=== PATIENT | female | born 1985 | race Caucasian/White ===

== ENCOUNTER → 2016-11-17 | Outpatient (CLI) | payer BC ==
[2016-11-17 13:46] LABS: PREG INTERNAL NEGATIVE QC NEG CLEAR BACKGROUND; PREG INTERNAL POSITIVE QC POS CONTROL LINE
== END | disposition home or self-care (01) ==
LOC: C.LAB1850 11:32
PROVIDERS: ATTEND Obstetrics & Gynecology
DX: N91.1 Secondary amenorrhea (principal)

== ENCOUNTER → 2016-12-29 | Outpatient (CLI) | payer BC | END | disposition home or self-care (01) | LOC: C.LAB1850 12:18 | PROVIDERS: ATTEND Obstetrics & Gynecology | DX: E03.9 Hypothyroidism, unspecified (principal) ==

== ENCOUNTER → 2017-02-09 | Outpatient (CLI) | payer BC | END | disposition home or self-care (01) | LOC: C.LAB1850 12:16 | PROVIDERS: ATTEND Obstetrics & Gynecology | DX: E03.9 Hypothyroidism, unspecified (principal) ==

== ENCOUNTER → 2017-03-23 | Outpatient (CLI) | payer BC | END | disposition home or self-care (01) | LOC: C.LAB1850 12:24 | PROVIDERS: ATTEND Obstetrics & Gynecology | DX: E03.9 Hypothyroidism, unspecified (principal) ==

== ENCOUNTER → 2017-08-11 | Outpatient (CLI) | payer BC ==
[2017-08-11 09:55] LABS: CALCULATED INSULIN SENSITIVITY 0.296; GLUCOSE LOG 1.9638; INSULIN FASTING 25.7 mU/L (3-25); INSULIN LOG 1.4099
== END | disposition home or self-care (01) ==
LOC: C.LAB1850 08:38
PROVIDERS: ATTEND Obstetrics & Gynecology
DX: E28.2 Polycystic ovarian syndrome (principal)

== ENCOUNTER → 2017-08-14 | Outpatient (CLI) | payer BC ==
[2017-08-14 12:41] LABS: GLUCOSE,2HR PP 88 mg/dl (70-140)
[2017-08-14 12:55] LABS: GTGD 50 Grams
== END | disposition home or self-care (01) ==
LOC: C.LAB 09:42
PROVIDERS: ATTEND Obstetrics & Gynecology
DX: E88.81 Metabolic syndrome and other insulin resistance (principal)

== ENCOUNTER → 2017-09-16 | Outpatient (CLI) | payer BC | END | disposition home or self-care (01) | LOC: C.LAB1850 12:22 | PROVIDERS: ATTEND Obstetrics & Gynecology | DX: E03.9 Hypothyroidism, unspecified (principal); Z32.00 Encounter for pregnancy test, result unknown ==

== ENCOUNTER → 2017-09-18 | Outpatient (CLI) | payer BC | END | disposition home or self-care (01) | LOC: C.LAB 12:15 | PROVIDERS: ATTEND Obstetrics & Gynecology | DX: Z32.00 Encounter for pregnancy test, result unknown (principal) ==

== ENCOUNTER 2017-09-27 15:44 | Emergency (ER) | payer BC ==
[~2017-09-27] VITALS: Ht 162.6 cm; Wt 86.0 kg
[2017-09-27 16:36] VITALS: Ht 162.6 cm; Wt 86.0 kg
[2017-09-27] MEDS ORDERED: LEVO25TA PO (18:25)
[2017-09-27] MEDS ORDERED: PRENTAB26 PO (18:25)
[2017-09-27] MEDS ORDERED: GLC/500 PO (18:25)
[2017-09-27 18:48] LABS: BASO % 0.2 %; BASO ABS # 0.03 K/uL (0-0.2); EOS % 0.9 %; EOS ABS # 0.12 K/uL (0-0.5); HEMATOCRIT 38.5 % (37-47); HEMOGLOBIN 13.4 g/dL (12.0-16.0); IG# 0.04 K/uL (0.00-0.02); LYMPH % 16.3 %; MEAN CELL VOLUME 84.6 fL (80-100); MEAN CORPUSCULAR HEMOGLOBIN 29.5 pg (25-34); MEAN CORPUSCULAR HGB CONC 34.8 g/dl (32-36); MEAN PLATELET VOLUME 9.5 fL (7.4-10.4); MONO % 5.4 %; MONO ABS # 0.73 K/uL (0.11-0.59); NEUT % 76.9 %; NEUT ABS # 10.35 K/uL (1.4-6.5); PLATELET COUNT 321 K/uL (130-400); RED CELL DISTRIBUTION WIDTH CV 13.1 % (11.5-14.5); WHITE BLOOD COUNT 13.47 K/uL (4.8-10.8)
[2017-09-27 19:01] LABS: CALCIUM 9.3 mg/dl (8.5-10.1); CREATININE 0.73 mg/dl (0.60-1.20); POTASSIUM 3.7 mmol/L (3.5-5.1)
--- NOTE | 2017-09-27 19:38 | DIAGNOSTIC IMAGING REPORT ---
ECTOPIC ULTRASOUND CLINICAL HISTORY: , vaginal bleeding. COMPARISON STUDY: No previous studies for comparison. FINDINGS: The patient was scanned in both a transabdominal and endovaginal fashion. An intrauterine gestational sac with an embryo demonstrating a crown-rump length of 9 mm was visualized. This corresponds an estimated postmenstrual age of 6 weeks and 6 days. The heart rate is 123. A 3 mm yolk sac was visualized. There is a small amount of free fluid within the right adnexa. The right ovary appears architectural unremarkable. There is a 25 mm left ovarian isoechoic lesion likely are presenting a hemorrhagic cyst. There is a small complex subchorionic hematoma. IMPRESSION: 1. Single alive intrauterine gestation. The estimated postmenstrual age is 6 weeks and 6 days 2. Small complex subchorionic hematoma Electronically signed by: Amos Hendrix M.D. 09/27/2017 7:36 PM Dictated Date/Time: 09/27/2017 7:33 PM
--- NOTE | 2017-09-27 20:10 | EMERGENCY ROOM VISIT NOTE ---
ED Visit Note First contact with patient: 17:40 CHIEF COMPLAINT: Vaginal spotting today, 7 weeks HISTORY OF PRESENT ILLNESS: Patient is a G8 1 P0 reportedly 7 week 32- year-old white female with past medical history significant for hypothyroidism and polycystic ovarian syndrome who presents to the emergency department for evaluation of vaginal spotting. Her symptoms started this morning. She states when she woke and voided for the first time, she noted some brown blood in the toilet after she urinated. As the day has gone on, she now notes a similar brown blood only with wiping after voiding. She admitted to some very slight diffuse lower abdominal discomfort this morning which has since resolved. She states that the spotting has continued throughout the day, but is not to the point where she has needed to use a pad. She does admit that it is lessening as the day has gone on. She denies any vaginal discharge, no recent intercourse. She denies any dysuria. She reports that her last menstrual period was 08/10/2017, she had a positive home test on September 12, and had subsequent serum hCG levels on the and on the , which increased appropriately. She is scheduled to see the obstetric RN on 10/11, and have her initial obstetric appointment with the physician on 10/18. She denies that she contacted the doctor's office prior to coming to the emergency department. She rates her discomfort a 0/10. REVIEW OF SYSTEMS: Review of systems as per HPI. All other systems reviewed were negative. 10 systems reviewed. PMH: Electronic medical records are reviewed and summarized as above/below. See Problem List. SOCIAL HISTORY: Patient lives at home with her spouse. Employed. She does not smoke. PHYSICAL EXAM: Vital Signs: Reviewed Nurse's notes. CONSTITUTIONAL: Patient is a pleasant albeit slightly anxious 2-year-old white female who is awake and alert and in no acute distress. Her is at the bedside. EYES: Pupils equal, round, reactive to light and accommodation. EOMs intact without nystagmus. Sclera are anicteric. ENT: Tympanic membranes intact, with normal landmarks. External canals are clear. Oral and nasopharynx are clear. Mucous membranes are moist, no lesions , tongue and gums appear normal. NECK: Supple without lymphadenopathy. No thyromegaly. No meningeal signs. Full active range of motion without discomfort. CARDIOVASCULAR: Regular rate and rhythm, with normal S1 and S2, no murmur or gallop or rub is heard. No carotid bruits auscultated. No JVD. Peripheral pulses easily palpable. RESPIRATORY: Breath sounds equal and clear to auscultation without wheezes, rales, or rhonchi heard. Full and equal chest expansion without accessory muscle use or retractions. ABDOMEN: Bowel sounds are present. Abdomen is soft, nontender and nondistended. No guarding or rebound. INTEGUMENTARY: No lesions or rash, normal skin turgor. LYMPH: No lymphadenopathy. EMERGENCY DEPARTMENT COURSE: The patient was seen and evaluated as above. She presents the emergency department for evaluation of first trimester vaginal bleeding. She has yet to have an ultrasound to confirm intrauterine , the hCG levels have been appropriate however. She is hemodynamically stable. IV lock was initiated. CBC with differential, BMP, quantitative hCG, urinalysis and ABO Rh were collected. Pelvic ultrasound was performed to evaluate intrauterine and vaginal bleeding. Patient has a slightly elevated white count at 13,400 of unclear significance. H&H and platelets are normal. Electrolytes are without gross abnormality. Renal functions are normal. Quantitative hCG is 36,793. Urinalysis notes trace occult blood and tender 30 RBCs with 20-30 epithelial cells, no other indicators for infection. Blood type is O+. Pelvic ultrasound documents a intrauterine measuring weeks 6 days, with cardiac activity at 123 beats per minute. She has a small complex subchorionic hematoma, and a 2.5 cm hemorrhagic left ovarian cyst. All laboratory and diagnostic imaging studies were reviewed with the patient and she was reassured. Her bleeding appears consistent with the subchorionic hematoma. She has a confirmed intrauterine at this time. HCG levels are consistent with her dates. The patient was given bleeding precautions, and encouraged to keep the obstetric appointments that she has scheduled. 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 The patient was discharged home with her in good condition , rating her pain a 0/10 at discharge. Differential diagnoses entertained included first trimester vaginal bleeding, , ectopic , threatened AB, spontaneous , subchorionic hemorrhage, UTI, cystitis, among others. Medication reconciliation: I attest that I have personally reviewed the patient' s current medication list. Blood pressure screening: Patient was found to have a slightly elevated blood pressure due to circumstances. I do not believe that the patient requires hypertension monitoring. ECTOPIC ULTRASOUND CLINICAL HISTORY: , vaginal bleeding. COMPARISON STUDY: No previous studies for comparison. FINDINGS: The patient was scanned in both a transabdominal and endovaginal fashion. An intrauterine gestational sac with an embryo demonstrating a crown-rump length of 9 mm was visualized. This corresponds an estimated postmenstrual age of 6 weeks and 6 days. The heart rate is 123. A 3 mm yolk sac was visualized. There is a small amount of free fluid within the right adnexa. The right ovary appears architectural unremarkable. There is a 25 mm left ovarian isoechoic lesion likely are presenting a hemorrhagic cyst. There is a small complex subchorionic hematoma. IMPRESSION: 1. Single alive intrauterine gestation. The estimated postmenstrual age is 6 weeks and 6 days 2. Small complex subchorionic hematoma Problem List Medical Problems: (1) Hypothyroidism, Unspecified Status: Chronic (2) Metabolic Syndrome Status: Chronic (3) Polycystic Ovarian Syndrome Status: Chronic Surgical Problems: (1) H/O wisdom tooth extraction Status: Resolved Current/Historical Medications Scheduled Levothyroxine Sodium (Synthroid), 1 TAB PO DAILY Metformin Hcl (Glucophage), 500 MG PO BID Multivit/Min/Iron/Fol Ac/Pren ( Vitamin), 1 TAB PO DAILY Allergies Coded Allergies: No Known Allergies (Unverified , 09/27/17) Vital Signs Date Time Temp Pulse Resp B/P (MAP) Pulse Ox O2 Delivery O2 Flow Rate FiO2 09/27/17 20:17 36.8 80 20 148/86 98 Room Air 09/27/17 19:19 78 20 149/105 98 Room Air 09/27/17 16:36 36.6 102 18 166/116 99 Room Air Laboratory Results 09/27/17 18:30 Red Blood Count 4.55, Mean Corpuscular Volume 84.6, Mean Corpuscular Hemoglobin 29.5, Mean Corpuscular Hemoglobin Concent 34.8, Mean Platelet Volume 9.5, Neutrophils (%) (Auto) 76.9, Lymphocytes (%) (Auto) 16.3, Monocytes (%) (Auto) 5.4, Eosinophils (%) (Auto) 0.9, Basophils (%) (Auto) 0.2, Neutrophils # (Auto) 10.35, Lymphocytes # (Auto) 2.20, Monocytes # (Auto) 0.73, Eosinophils # (Auto) 0.12, Basophils # (Auto) 0.03 09/27/17 18:30 Test 09/27/17 18:30 09/27/17 19:20 White Blood Count 13.47 K/uL (4.8-10.8) Red Blood Count 4.55 M/uL (4.2-5.4) Hemoglobin 13.4 g/dL (12.0-16.0) Hematocrit 38.5 % (37-47) Mean Corpuscular Volume 84.6 fL (80-100) Mean Corpuscular Hemoglobin 29.5 pg (25-34) Mean Corpuscular Hemoglobin Concent 34.8 g/dl (32-36) Platelet Count 321 K/uL (130-400) Mean Platelet Volume 9.5 fL (7.4-10.4) Neutrophils (%) (Auto) 76.9 % Lymphocytes (%) (Auto) 16.3 % Monocytes (%) (Auto) 5.4 % Eosinophils (%) (Auto) 0.9 % Basophils (%) (Auto) 0.2 % Neutrophils # (Auto) 10.35 K/uL (1.4-6.5) Lymphocytes # (Auto) 2.20 K/uL (1.2-3.4) Monocytes # (Auto) 0.73 K/uL (0.11-0.59) Eosinophils # (Auto) 0.12 K/uL (0-0.5) Basophils # (Auto) 0.03 K/uL (0-0.2) RDW Standard Deviation 40.0 fL (36.4-46.3) RDW Coefficient of Variation 13.1 % (11.5-14.5) Immature Granulocyte % (Auto) 0.3 % Immature Granulocyte # (Auto) 0.04 K/uL (0.00-0.02) Anion Gap 10.0 mmol/L (3-11) Est Creatinine Clear Calc Drug Dose 118.5 ml/min Estimated GFR () 127.2 Estimated GFR (Non- 109.7 BUN/Creatinine Ratio 11.3 (10-20) Calcium Level 9.3 mg/dl (8.5-10.1) Human Chorionic Gonadotropin, Quant 91913 mIU/mL Urine Color YELLOW Urine Appearance CLEAR (CLEAR) Urine pH 5.0 (4.5-7.5) Urine Specific [place] 1.019 (1.000-1.030) Urine Protein NEG (NEG) Urine Glucose (UA) NEG (NEG) Urine Ketones NEG (NEG) Urine Occult Blood TRACE (NEG) Urine Nitrite NEG (NEG) Urine Bilirubin NEG (NEG) Urine Urobilinogen NEG (NEG) Urine Leukocyte Esterase NEG (NEG) Urine WBC (Auto) 1-5 /hpf (0-5) Urine RBC (Auto) 10-30 /hpf (0-4) Urine Hyaline Casts (Auto) 1-5 /lpf (0-5) Urine Epithelial Cells (Auto) 20-30 /lpf (0-5) Urine Bacteria (Auto) NEG (NEG) Departure Information Impression Primary Impression: First trimester Additional Impression: Subchorionic hematoma in first trimester Referrals No Doctor, Assigned (PCP) Patient Instructions [facility] Additional Instructions Acetaminophen(Tylenol) may be used for fever or pain. Use 1000mg every six hours as needed. Avoid using more than 3000mg in a 24 hour period. Rest and avoid any heavy lifting or strenuous activity. Strict vaginal rest-no tampons, douching or intercourse. Drink plenty of fluids. Diet as tolerated. Continue current medications. Follow up with MOTTLE LAY UP OPERATOR as scheduled. Return to the ED for worsening pain, heavier bleeding (soaking a pad in an hour or less, passing clots larger than your fist), lightheadedness, dizziness, passing out, worsening of your condition or as needed. Problem Qualifiers
[2017-09-27 20:17] VITALS: BP 148/86; PULSE 80; TEMP 36.8; O2SAT 98
== END 2017-09-27 20:19 | disposition home or self-care (01) ==
LOC: C.EDB 15:46
DX: O20.8 Other hemorrhage in early pregnancy (principal); Z3A.01 Less than 8 weeks gestation of pregnancy; E03.9 Hypothyroidism, unspecified; O99.281 Endocrine, nutritional and metabolic diseases complicating pregnancy, first trimester; E28.2 Polycystic ovarian syndrome; E88.81 Metabolic syndrome and other insulin resistance; Z79.899 Other long term (current) drug therapy

== ENCOUNTER 2017-09-30 11:19 | Emergency (ER) | payer BC ==
[~2017-09-30] VITALS: Ht 162.6 cm; Wt 99.2 kg
[~2017-09-30 11:19] MED LIST: GLC/500 PO; LEVO25TA PO; PRENTAB26 PO
[2017-09-30 11:31] VITALS: TEMP 36.8; Ht 162.6 cm; Wt 99.2 kg
[2017-09-30] MEDS ORDERED: SODIUM CHLORIDE 0.9% 1000ML 1,000 ML IV STA (12:15)
--- NOTE | 2017-09-30 12:19 | EMERGENCY ROOM VISIT NOTE ---
History Report prepared by Delores: Stone Robbins Under the Supervision of: Dr. Claudio Santillan M.D. First contact with patient: 12:04 Chief Complaint: ED VAG BLEEDING Stated Complaint: POSSIBLE MISCARRIAGE, 7 WEEKS History of Present Illness The patient is a 32 year old female who presents to the Emergency Room with concerns over worsening vaginal bleeding that the patient noticed this morning while at work at 1100, 1 hour ago. The patient notes that she is currently 7 weeks based off of her last menstrual cycle. She noticed some vaginal bleeding earlier this week and she came into the ED. She had an Ultra Sound performed that showed a intrauterine with an active heartbeat. Her bleeding was attributed to a hematoma on the uterus that would not harm the fetus. Today her bleeding was much worse, and she noticed some tissue in the toilet. She did not follow-up with her OBGYN after her ED visit earlier this week. She has an appointment scheduled for the of this month. The patient denies any other symptoms prior to/during her bleeding, aside from common "morning" sickness. She denies any associated lightheadedness or headaches. P:0 A:0 Review of the Patient's EMR shows that she was present in the ED on the 27 of September, three days ago. She had a Ultra Sound that revealed a definitive IUP and subchorionic hematoma. 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 A total of ten systems were reviewed and were otherwise negative. Past Medical & Surgical Medical Problems: (1) Hypothyroidism, Unspecified (2) Metabolic Syndrome (3) Polycystic Ovarian Syndrome Surgical Problems: (1) H/O wisdom tooth extraction Family History No Pertinent family histories discussed. Social History Smoking Status: Never Smoker Drug Use: none Marital Status: Housing Status: lives with significant other Occupation Status: employed Current/Historical Medications Scheduled Levothyroxine Sodium (Synthroid), 1 TAB PO DAILY Metformin Hcl (Glucophage), 500 MG PO BID Multivit/Min/Iron/Fol Ac/Pren ( Vitamin), 1 TAB PO DAILY Allergies Coded Allergies: No Known Allergies (Unverified , 09/30/17) Physical Exam Vital Signs Date Time Temp Pulse Resp B/P (MAP) Pulse Ox O2 Delivery O2 Flow Rate FiO2 09/30/17 15:49 94 18 139/88 100 09/30/17 14:27 103 18 157/91 99 Room Air 09/30/17 11:31 36.8 98 16 168/105 98 Physical Exam GENERAL: Awake, alert, anxious-appearing, in no distress HENT: Normocephalic, atraumatic. Oropharynx unremarkable. EYES: Normal conjunctiva. Sclera non-icteric. NECK: Supple. No nuchal rigidity. FROM. No JVD. RESPIRATORY: Clear to auscultation. CARDIAC: Regular rate, normal rhythm. Extremities warm and well perfused. Pulses equal. ABDOMEN: Soft, non-distended. No tenderness to palpation. No rebound or guarding. No masses. RECTAL: Deferred. MUSCULOSKELETAL: Chest examination reveals no tenderness. The back is symmetrical on inspection without obvious abnormality. There is no CVA tenderness to palpation. No joint edema. LOWER EXTREMITIES: Calves are equal size bilaterally and non-tender. No edema. No discoloration. NEURO: Normal sensorium. No sensory or motor deficits noted. SKIN: No rash or jaundice noted. PELVIC: Pelvic Speculum exam reveals open Os, scant amount of clot in the vaginal vault. No active hemorrhage or bleeding. Medical Decision & Procedures ER Provider Diagnostic Interpretation: Radiology results as stated below per my review and radiologist interpretation: ULTRASOUND OF THE PELVIS CLINICAL HISTORY: . Vaginal bleeding. COMPARISON STUDY: No priors. TECHNIQUE: Real-time, grayscale, and color flow sonography of the pelvis is performed both transabdominally and endovaginally. Images are reviewed in the transverse and longitudinal planes. FINDINGS: Uterus: The retroverted gravid uterus is normal in size and echotexture, measuring 10.0 x 6.3 x 6.7 cm. Trace fluid is noted in the endocervical canal. Gestation: There is a single live uterine gestation with an estimated heart rate of 136 bpm. The crown-rump length measures 0.83 cm, corresponding to an estimated age of 6 weeks 5 days. This is concordant with the mean gestational sac diameter of 2.18 cm which corresponds to an estimated age of 6 weeks 5 days. A yolk sac is identified there are 2 small subchorionic hemorrhages which measures up to 2.1 cm. Ovaries: The ovaries are normal in size and morphology. The right ovary measures 3.7 x 2.3 x 2.2 cm and the left ovary measures 4.0 x 3.2 x 3.0 cm. There are bilateral follicles. A corpus the team is suggested on the left. Normal Doppler waveforms are shown within both ovaries. Pelvis: There is no free fluid in the cul-de-sac. No concerning adnexal lesion is seen. IMPRESSION: 1. There is a single live intrauterine gestation with an estimated age of 6 weeks 5 days by crown-rump length measurement. 2. There are 2 small foci of subchorionic hemorrhage identified. 3. No adnexal abnormality is identified. Electronically signed by: Sahil Ordoñez M.D. 09/30/2017 2:21 PM Dictated Date/Time: 09/30/2017 2:18 PM ULTRASOUND OF THE PELVIS CLINICAL HISTORY: . Vaginal bleeding. COMPARISON STUDY: No priors. TECHNIQUE: Real-time, grayscale, and color flow sonography of the pelvis is performed both transabdominally and endovaginally. Images are reviewed in the transverse and longitudinal planes. FINDINGS: Uterus: The retroverted gravid uterus is normal in size and echotexture, measuring 10.0 x 6.3 x 6.7 cm. Trace fluid is noted in the endocervical canal. Gestation: There is a single live uterine gestation with an estimated heart rate of 136 bpm. The crown-rump length measures 0.83 cm, corresponding to an estimated age of 6 weeks 5 days. This is concordant with the mean gestational sac diameter of 2.18 cm which corresponds to an estimated age of 6 weeks 5 days. A yolk sac is identified there are 2 small subchorionic hemorrhages which measures up to 2.1 cm. Ovaries: The ovaries are normal in size and morphology. The right ovary measures 3.7 x 2.3 x 2.2 cm and the left ovary measures 4.0 x 3.2 x 3.0 cm. There are bilateral follicles. A corpus the team is suggested on the left. Normal Doppler waveforms are shown within both ovaries. Pelvis: There is no free fluid in the cul-de-sac. No concerning adnexal lesion is seen. IMPRESSION: 1. There is a single live intrauterine gestation with an estimated age of 6 weeks 5 days by crown-rump length measurement. 2. There are 2 small foci of subchorionic hemorrhage identified. 3. No adnexal abnormality is identified. Electronically signed by: Sahil Ordoñez M.D. 09/30/2017 2:21 PM Dictated Date/Time: 09/30/2017 2:18 PM Laboratory Results 09/30/17 12:29 Red Blood Count 4.52, Mean Corpuscular Volume 84.7, Mean Corpuscular Hemoglobin 29.2, Mean Corpuscular Hemoglobin Concent 34.5, Mean Platelet Volume 9.4, Neutrophils (%) (Auto) 76.9, Lymphocytes (%) (Auto) 14.1, Monocytes (%) (Auto) 7.2, Eosinophils (%) (Auto) 1.1, Basophils (%) (Auto) 0.3, Neutrophils # (Auto) 9.42, Lymphocytes # (Auto) 1.73, Monocytes # (Auto) 0.88, Eosinophils # (Auto) 0.14, Basophils # (Auto) 0.04 09/30/17 12:29 Test 09/30/17 12:29 White Blood Count 12.26 K/uL (4.8-10.8) Red Blood Count 4.52 M/uL (4.2-5.4) Hemoglobin 13.2 g/dL (12.0-16.0) Hematocrit 38.3 % (37-47) Mean Corpuscular Volume 84.7 fL (80-100) Mean Corpuscular Hemoglobin 29.2 pg (25-34) Mean Corpuscular Hemoglobin Concent 34.5 g/dl (32-36) Platelet Count 303 K/uL (130-400) Mean Platelet Volume 9.4 fL (7.4-10.4) Neutrophils (%) (Auto) 76.9 % Lymphocytes (%) (Auto) 14.1 % Monocytes (%) (Auto) 7.2 % Eosinophils (%) (Auto) 1.1 % Basophils (%) (Auto) 0.3 % Neutrophils # (Auto) 9.42 K/uL (1.4-6.5) Lymphocytes # (Auto) 1.73 K/uL (1.2-3.4) Monocytes # (Auto) 0.88 K/uL (0.11-0.59) Eosinophils # (Auto) 0.14 K/uL (0-0.5) Basophils # (Auto) 0.04 K/uL (0-0.2) RDW Standard Deviation 39.7 fL (36.4-46.3) RDW Coefficient of Variation 13.0 % (11.5-14.5) Immature Granulocyte % (Auto) 0.4 % Immature Granulocyte # (Auto) 0.05 K/uL (0.00-0.02) Prothrombin Time 9.9 SECONDS (9.0-12.0) Prothromb Time International Ratio 0.9 (0.9-1.1) Activated Partial Thromboplast Time 28.8 SECONDS (21.0-31.0) Partial Thromboplastin Ratio 1.1 Anion Gap 6.0 mmol/L (3-11) Est Creatinine Clear Calc Drug Dose 108.5 ml/min Estimated GFR () 104.3 Estimated GFR (Non- 90.0 BUN/Creatinine Ratio 12.3 (10-20) Calcium Level 9.5 mg/dl (8.5-10.1) Total Bilirubin 0.4 mg/dl (0.2-1) Aspartate Amino Transf (AST/SGOT) 16 U/L (15-37) Alanine Aminotransferase (ALT/SGPT) 30 U/L (12-78) Alkaline Phosphatase 74 U/L (45-117) Total Protein 8.4 gm/dl (6.4-8.2) Albumin 3.8 gm/dl (3.4-5.0) Globulin 4.6 gm/dl (2.5-4.0) Albumin/Globulin Ratio 0.8 (0.9-2) Human Chorionic Gonadotropin, Quant 23330 mIU/mL Laboratory results reviewed by me Medications Administered Medications (Trade) Dose Ordered Sig/Davey Route Start Time Stop Time Status Last Admin Dose Admin Sodium Chloride 1,000 ml @ 999 mls/hr Q1H1M STAT IV 09/30/17 12:15 09/30/17 13:15 DC 09/30/17 12:15 999 MLS/HR Procedure BEDSIDE ULTRA SOUND: Shows no definitive IUP. ED Course 1206: The patient was evaluated in room C4. A complete history and physical exam was performed. 1213: I performed a bedside ultra sound at this time. This shows no definitive IUP. 1215: Ordered Sodium Chloride 1000 mL @ 999 mL/hr IV. 1317: I performed a pelvic exam at this time before the patient goes to Ultra Sound. See physical exam for findings. 1452: I discussed the results of Ultra Sound with the patient at this time. 1514: I discussed the case with Dr. Baez -Mikhail BARONE. He will evaluate the patient in his office as an outpatient. 1528: I reevaluated the patient. Discussed results and discharge instructions: She and her verbalized understanding and agreement. The patient is ready for discharge. Medical Decision I reviewed the patient's past medical history, medications, and the nursing notes as described above. Differential diagnosis: Etiologies such as ectopic , dysfunction uterine bleeding, bleeding dyscrasia, trauma, infection, as well as others were entertained. 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 On arrival the patient is anxious/tearful but in NAD, AFVSS. Abd NT/ND. Pelvic exam with open os and scant residual clots but no active bleeding. TVUS demonstrates IUP with FHR 130s with 2 small subchorionic hemorrhages. Labs unremarkable. Blood type O+ . Given repeat ED visit case d/w Dr. Baez, OB on-call, who agrees there is no intervention indicated in this setting and findings may be indicative of impending miscarriage. Patient to call OB office for earlier appointment as well as if bleeding resumes. Dr. Baez also met with patient at bedside to explain plan. Findings and plan for follow-up reviewed with patient. Patient agreeable and d/c'd per discharge instructions. Medication Reconcilliation Current Medication List: was personally reviewed by me Blood Pressure Screening Patient's blood pressure: Elevated blood pressure Consults Time Called: 1510 Consulting Physician: Dr. Sasha BARONE Returned Call: 1514 I discussed the case with Dr. Baez -Mikhail BARONE. He will evaluate the patient in his office as an outpatient. Impression Primary Impression: Subchorionic hemorrhage in first trimester Scribe Attestation The scribe's documentation has been prepared under my direction and personally reviewed by me in its entirety. I confirm that the note above accurately reflects all work, treatment, procedures, and medical decision making performed by me. Departure Information Dispostion Home / Self-Care Referrals No Doctor, Assigned (PCP) Patient Instructions Bleeding Early Preg, My [facility], Preg 1st Trimester Additional Instructions Please follow up with your boom storage in the next week for re-evaluation. Your bleeding is likely due to a subchorionic hemorrhage, which can put you at risk for a miscarriage. However, today your was not affect with normal heart beat. Otherwise, your exam and lab results did not show signs of an emergent condition at this time. Drink plenty of fluids to ensure hydration. Return to the emergency department for worsening symptoms as described in the accompanying instructions.
[2017-09-30 12:46] LABS: BASO % 0.3 %; BASO ABS # 0.04 K/uL (0-0.2); EOS % 1.1 %; EOS ABS # 0.14 K/uL (0-0.5); HEMATOCRIT 38.3 % (37-47); HEMOGLOBIN 13.2 g/dL (12.0-16.0); IG# 0.05 K/uL (0.00-0.02); LYMPH % 14.1 %; LYMPH ABS # 1.73 K/uL (1.2-3.4); MEAN CELL VOLUME 84.7 fL (80-100); MEAN CORPUSCULAR HEMOGLOBIN 29.2 pg (25-34); MEAN CORPUSCULAR HGB CONC 34.5 g/dl (32-36); MEAN PLATELET VOLUME 9.4 fL (7.4-10.4); MONO % 7.2 %; MONO ABS # 0.88 K/uL (0.11-0.59); NEUT % 76.9 %; NEUT ABS # 9.42 K/uL (1.4-6.5); PLATELET COUNT 303 K/uL (130-400); RED CELL DISTRIBUTION WIDTH SD 39.7 fL (36.4-46.3); WHITE BLOOD COUNT 12.26 K/uL (4.8-10.8)
[2017-09-30 12:56] LABS: INR 0.9 (0.9-1.1); PTT PATIENT 28.8 SECONDS (21.0-31.0)
[2017-09-30 13:01] LABS: ALBUMIN 3.8 gm/dl (3.4-5.0); CALCIUM 9.5 mg/dl (8.5-10.1); CREATININE 0.86 mg/dl (0.60-1.20); POTASSIUM 3.7 mmol/L (3.5-5.1)
[2017-09-30 13:04] LABS: TOTAL PROTEIN 8.4 gm/dl (6.4-8.2)
--- NOTE | 2017-09-30 14:22 | DIAGNOSTIC IMAGING REPORT ---
ULTRASOUND OF THE PELVIS CLINICAL HISTORY: . Vaginal bleeding. COMPARISON STUDY: No priors. TECHNIQUE: Real-time, grayscale, and color flow sonography of the pelvis is performed both transabdominally and endovaginally. Images are reviewed in the transverse and longitudinal planes. FINDINGS: Uterus: The retroverted gravid uterus is normal in size and echotexture, measuring 10.0 x 6.3 x 6.7 cm. Trace fluid is noted in the endocervical canal. Gestation: There is a single live uterine gestation with an estimated heart rate of 136 bpm. The crown-rump length measures 0.83 cm, corresponding to an estimated age of 6 weeks 5 days. This is concordant with the mean gestational sac diameter of 2.18 cm which corresponds to an estimated age of 6 weeks 5 days. A yolk sac is identified there are 2 small subchorionic hemorrhages which measures up to 2.1 cm. Ovaries: The ovaries are normal in size and morphology. The right ovary measures 3.7 x 2.3 x 2.2 cm and the left ovary measures 4.0 x 3.2 x 3.0 cm. There are bilateral follicles. A corpus the team is suggested on the left. Normal Doppler waveforms are shown within both ovaries. Pelvis: There is no free fluid in the cul-de-sac. No concerning adnexal lesion is seen. IMPRESSION: 1. There is a single live intrauterine gestation with an estimated age of 6 weeks 5 days by crown-rump length measurement. 2. There are 2 small foci of subchorionic hemorrhage identified. 3. No adnexal abnormality is identified. Electronically signed by: Sahil Ordoñez M.D. 09/30/2017 2:21 PM Dictated Date/Time: 09/30/2017 2:18 PM
[2017-09-30 15:49] VITALS: BP 139/88; PULSE 94; O2SAT 100
== END 2017-09-30 15:50 | disposition home or self-care (01) ==
LOC: C.EDB 11:20 → C.EDC 15:50
DX: O46.91 Antepartum hemorrhage, unspecified, first trimester (principal); Z3A.01 Less than 8 weeks gestation of pregnancy; E03.9 Hypothyroidism, unspecified

== ENCOUNTER → 2017-10-04 | Outpatient (CLI) | payer BC | END | disposition home or self-care (01) | LOC: C.LABSPEC 17:24 | PROVIDERS: ATTEND Obstetrics & Gynecology | DX: Z34.01 Encounter for supervision of normal first pregnancy, first trimester (principal); Z3A.00 Weeks of gestation of pregnancy not specified ==

== ENCOUNTER → 2017-10-12 | Outpatient (CLI) | payer BC | END | disposition home or self-care (01) | LOC: C.PAPS 12:08 | PROVIDERS: ATTEND Obstetrics & Gynecology | DX: Z34.01 Encounter for supervision of normal first pregnancy, first trimester (principal) ==

== ENCOUNTER → 2017-10-12 | Outpatient (CLI) | payer BC ==
[2017-10-12 10:17] LABS: BASO % 0.5 %; BASO ABS # 0.05 K/uL (0-0.2); EOS % 1.4 %; EOS ABS # 0.15 K/uL (0-0.5); HEMATOCRIT 37.1 % (37-47); HEMOGLOBIN 12.9 g/dL (12.0-16.0); IG# 0.05 K/uL (0.00-0.02); LYMPH % 15.4 %; LYMPH ABS # 1.69 K/uL (1.2-3.4); MEAN CELL VOLUME 83.6 fL (80-100); MEAN CORPUSCULAR HEMOGLOBIN 29.1 pg (25-34); MEAN CORPUSCULAR HGB CONC 34.8 g/dl (32-36); MEAN PLATELET VOLUME 9.4 fL (7.4-10.4); MONO % 5.5 %; MONO ABS # 0.61 K/uL (0.11-0.59); NEUT % 76.7 %; NEUT ABS # 8.45 K/uL (1.4-6.5); PLATELET COUNT 372 K/uL (130-400); RED CELL DISTRIBUTION WIDTH CV 12.9 % (11.5-14.5); RED CELL DISTRIBUTION WIDTH SD 39.5 fL (36.4-46.3)
[2017-10-12 10:25] LABS: HEMOGLOBIN A1C 4.9 % (4.5-5.6)
== END | disposition home or self-care (01) ==
LOC: C.LAB1850 09:20
PROVIDERS: ATTEND Obstetrics & Gynecology
DX: Z34.01 Encounter for supervision of normal first pregnancy, first trimester (principal); O99.280 Endocrine, nutritional and metabolic diseases complicating pregnancy, unspecified trimester; R73.03 Prediabetes

== ENCOUNTER → 2017-11-18 | Outpatient (CLI) | payer BC | END | disposition home or self-care (01) | LOC: C.LAB1850 12:31 | PROVIDERS: ATTEND Physician Assistant | DX: E03.9 Hypothyroidism, unspecified (principal) ==

== ENCOUNTER → 2017-12-03 | Outpatient (CLI) | payer BC | END | disposition home or self-care (01) | LOC: C.LAB1850 09:08 | PROVIDERS: ATTEND Obstetrics & Gynecology | DX: Z34.02 Encounter for supervision of normal first pregnancy, second trimester (principal) ==

== ENCOUNTER → 2017-12-14 | Outpatient (CLI) | payer BC | END | disposition home or self-care (01) | LOC: C.LAB1850 12:34 | PROVIDERS: ATTEND Physician Assistant | DX: O99.280 Endocrine, nutritional and metabolic diseases complicating pregnancy, unspecified trimester (principal); Z3A.00 Weeks of gestation of pregnancy not specified; E03.9 Hypothyroidism, unspecified ==

== ENCOUNTER → 2018-01-11 | Outpatient (CLI) | payer BC | END | disposition home or self-care (01) | LOC: C.LAB1850 12:24 | PROVIDERS: ATTEND Physician Assistant | DX: O99.280 Endocrine, nutritional and metabolic diseases complicating pregnancy, unspecified trimester (principal); Z3A.00 Weeks of gestation of pregnancy not specified ==

== ENCOUNTER → 2018-04-21 | Outpatient (CLI) | payer BC | END | disposition home or self-care (01) | LOC: C.LABSPEC 11:21 | PROVIDERS: ATTEND Obstetrics & Gynecology | DX: Z34.03 Encounter for supervision of normal first pregnancy, third trimester (principal) ==

== ENCOUNTER 2021-12-08 07:30 | Inpatient (IN) ==
--- NOTE | 2021-12-08 15:41 | Anesthesiology Consultation ---
Date of Service December 08, 2021 Assessment & Plan (1) Encounter for pre-operative examination: Chart Review Chart Review: entry level paralegal initiated -We will leave BSG day of procedure to anesthesiologist discretion (patient with gestational diabetes) Per nursing assessment 12/08/21, patient denies any recent travel. No known Covid infection in the past 90 days. Patient is fully vaccinated for Covid. No known Covid positive exposures or Covid related symptoms. Preop Covid testing scheduled 12/09/21= will await results Emergency 05/25/18 (Nonreassuring heart tones) = Done under SAB at L3 with one attempt. History Surgery Operation Date: 12/11/21 07:30 Proposed Procedures p Section in LD (Delivery of Baby Through Abdominal Incision) - Meghna Gonzalez MD, FACOG Height/Weight Height: 5 ft 4.5 in Weight: 105.233 kg Allergies Allergy/AdvReac Type Severity Reaction Status Date / Time CHEAP JEWELRY AdvReac Unknown TURNS SKIN Uncoded 12/08/21 14:17 GREEN Medications Home Medications Medication Instructions Recorded Confirmed Last Taken blood sugar diagnostic (OneTouch #400 ea 04/08/21 12/02/21 Unknown Verio test strips) acetone (urine) test (Ketone Urine #50 ea 04/24/21 12/02/21 Unknown Test) lancets 33 gauge (OneTouch Delica #150 ea 04/24/21 12/02/21 Unknown Lancets) levothyroxine 112 mcg tablet 112 mcg PO QAM 12/08/21 12/08/21 Unknown vit no.133-ferrous 1 tab PO HS 12/08/21 12/08/21 Unknown fumarate 28 mg-folic acid 800 mcg tablet () Past Medical History Medical History Family history of reaction to anesthesia SISTER - N/V History of anesthesia reaction PT REPORTS SHE IS A RED HEAD AND WOKE UP PRETTY QUICKLY DURING TOOTH EXTRACTION NO PROBLEMS WITH PREVIOUS C/S History of gestational diabetes PT REPORTS NO PROBLEMS WITH BSG'S THIS Hypothyroidism Takes Levothyroxine 112mcg PO daily Past Family History Family History Mother Diabetes Hypertension Thyroid disease Hypercholesterolemia Grandmother (Maternal) Diabetes Aunt Thyroid cancer maternal Other Dyslipidemia Denies family history of Ovarian cancer Breast cancer Colorectal cancer Past Surgical History Surgical History Previous section D/T DISTRESS PER PT S/P tooth extraction HX Social History Smoking Status: Never smoker Do You Dip or Chew Tobacco: No Hx Alcohol Use: No (NOT SINCE BEING ) Hx Substance Use: No substance use type: does not use Testing Laboratory Results 10/18/21= TSH: 1.678 FREE T4: 0.75
--- NOTE | 2021-12-10 12:31 | History & Physical Report ---
Date of Service December 10, 2021 History of Present Illness Chief Complaint: planned c/s Primary Care Provider: Arturo Evans PA-C 36yo at 41 0/7 wks on day of her planned admission for scheduled repeat c/s. Patient has wanted to but unfortunately no labor and good dating. Dating confirmed by 7+wks us. She denies rom or vb. +FM. Some ctx on nst monitor today but no pain. PNC c/b 1. hypothyroidism 2. h/o c/s 3. h/o GDM PNL rh pos, ri, gbs neg OBH: c/s Allergies Allergy/AdvReac Type Severity Reaction Status Date / Time CHEAP JEWELRY AdvReac Unknown TURNS SKIN Uncoded 12/08/21 14:17 GREEN Home Medications Medication Instructions Recorded Confirmed Type blood sugar diagnostic (OneTouch #400 ea 04/08/21 12/10/21 Rx Verio test strips) acetone (urine) test (Ketone Urine #50 ea 04/24/21 12/10/21 Rx Test) lancets 33 gauge (OneTouch Delica #150 ea 04/24/21 12/10/21 Rx Lancets) levothyroxine 112 mcg tablet 112 mcg PO QAM 12/08/21 12/10/21 History vit no.133-ferrous 1 tab PO HS 12/08/21 12/10/21 History fumarate 28 mg-folic acid 800 mcg tablet () Patient History Medical History Family history of reaction to anesthesia SISTER - N/V History of anesthesia reaction PT REPORTS SHE IS A RED HEAD AND WOKE UP PRETTY QUICKLY DURING TOOTH EXTRACTION NO PROBLEMS WITH PREVIOUS C/S History of gestational diabetes PT REPORTS NO PROBLEMS WITH BSG'S THIS Hypothyroidism Takes Levothyroxine 112mcg PO daily Surgical History Previous section D/T DISTRESS PER PT S/P tooth extraction HX Family History Mother Diabetes Hypertension Thyroid disease Hypercholesterolemia Grandmother (Maternal) Diabetes Aunt Thyroid cancer maternal Other Dyslipidemia Denies family history of Ovarian cancer Breast cancer Colorectal cancer Social History Smoking Status: Never smoker Second Hand Exposure: No; Hx Alcohol Use: No (NOT SINCE BEING ) Hx Substance Use: No Preferred Language: Indonesian Communication Ability: Effective Visual Impairment: No Limitations Hearing Ability: Normal Real Estate Professor Required: No Beliefs That Will Affect Care: None marital status: marital status details: Eleazar Sales (38) [phone] Current Living Situation: Spouse and Family Current Living Situation Comment: , MY 3 YR OLD AND 'S MOTHER current occupational status: 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
--- NOTE | 2021-12-11 18:33 | History & Physical Report ---
Date of Service December 11, 2021 Assessment & Plan (1) Elderly multigravida, currently : (2) History of gestational diabetes mellitus: (3) History of delivery, currently : Plan: Patient in now postdates. Had wanted to but no spontaneous labor and unfavorable cervix. Now agreeing to undergo planned repeat c/s. She will be admitted wednesday for planned procedure. Consent reviewed and signed. Of note, edc had never been adjusted after 7w visit and so all u/s recalculated with findings of ac% most recently 84 and prior 32wk efw >90%. Therefore likely LGA fetus as well. Patient notes bsgs per hpi so unclear if gdm management would have changed but only discovered this error last wednesday without significant time to make meaningful adjusment in management. History of Present Illness Chief Complaint: planned c/s Primary Care Provider: Arturo Evans PA-C 36yo at 40+wks ega for planned c/s in background of prior c/s for repeat due to no labor for desired . Patient had wanted to and day of admission would be her default c/s date due to no labor. PNC c/b 1. GDM, recent adjustment of edc, shows u/s LGA and AC% 84, not on insulin. per pt glucoses <80 fasting and <110 1hr pp on vast majority of occasions. 2. Hypothyroid 3. AMA 4. Abnl quad--> low risk cfDNA PNL rh pos, ri, gbs neg OBH: prior breech c/s GYNH: nl paps Allergies Allergy/AdvReac Type Severity Reaction Status Date / Time CHEAP JEWELRY AdvReac Unknown TURNS SKIN Uncoded 12/08/21 14:17 GREEN Home Medications Medication Instructions Recorded Confirmed Type blood sugar diagnostic (OneTouch #400 ea 04/08/21 12/10/21 Rx Verio test strips) acetone (urine) test (Ketone Urine #50 ea 04/24/21 12/10/21 Rx Test) lancets 33 gauge (OneTouch Delica #150 ea 04/24/21 12/10/21 Rx Lancets) levothyroxine 112 mcg tablet 112 mcg PO QAM 12/08/21 12/10/21 History vit no.133-ferrous 1 tab PO HS 12/08/21 12/10/21 History fumarate 28 mg-folic acid 800 mcg tablet () Patient History Medical History Family history of reaction to anesthesia SISTER - N/V History of anesthesia reaction PT REPORTS SHE IS A RED HEAD AND WOKE UP PRETTY QUICKLY DURING TOOTH EXTRACTION NO PROBLEMS WITH PREVIOUS C/S History of gestational diabetes PT REPORTS NO PROBLEMS WITH BSG'S THIS Hypothyroidism Takes Levothyroxine 112mcg PO daily Surgical History Previous section D/T DISTRESS PER PT S/P tooth extraction HX Family History Mother Diabetes Hypertension Thyroid disease Hypercholesterolemia Grandmother (Maternal) Diabetes Aunt Thyroid cancer maternal Other Dyslipidemia Denies family history of Ovarian cancer Breast cancer Colorectal cancer Social History Smoking Status: Never smoker Second Hand Exposure: No; Hx Alcohol Use: No (NOT SINCE BEING ) Hx Substance Use: No Preferred Language: Indian Communication Ability: Effective Visual Impairment: No Limitations Hearing Ability: Normal Transportation Sales Consultant Required: No Beliefs That Will Affect Care: None marital status: marital status details: Eleazar Sales (38) [phone] Current Living Situation: Spouse and Family Current Living Situation Comment: , MY 3 YR OLD AND 'S MOTHER current occupational status: 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[employer] Feels Safe at Home: Yes Assistive Devices: Glasses Review of Systems as per Subjective / HPI Physical Exam Constitutional: WD/WN, vitals as above Respiratory: normal respiratory effort, lungs clear to auscultation Cardiovascular: Rate/Rhythm: regular rate and regular rhythm Gastrointestinal (Abdomen): soft gravid nt Musculoskeletal: no edema nontender calves Neurologic: grossly normal Psychiatric: A+Ox3, euthymic affect Genitourinary: sve done last wed/-3 Coding Level of Care Code None Diagnoses Elderly multigravida, currently O09.529 History of gestational diabetes mellitus Z86.32 History of delivery, currently O34.219
[2021-12-15] MEDS ORDERED: LACTATED RINGER'S 1,000 ML IV ONE (08:34)
[2021-12-15 08:35] LABS: Hematocrit (blood only) 34.4 % (37-47); Hemoglobin 11.7 g/dL (12.0-16.0); Mean Corpuscular Hemoglobin 29.7 pg (25-34); Mean Corpuscular Volume 87.3 fL (80-100); Mean Platelet Volume 10.1 fL (7.4-10.4); Platelet Count 247 K/uL (130-400); RDW Coefficient of Variation 14.1 % (11.5-14.5); RDW Standard Deviation 44.8 fL (36.4-46.3); Red Blood Count 3.94 M/uL (4.2-5.4)
[2021-12-15] MEDS ORDERED: LACTATED RINGER'S 1,000 ML IV SCH (08:45)
[2021-12-15] MEDS ORDERED: CITRIC ACID/SODIUM CITRATE 15 ML UDC ONE (08:55)
[2021-12-15] MEDS ORDERED: NALOXONE HCL 0.08 MG in SYRINGE 1.8 ML IV PRN (09:18)
[2021-12-15] MEDS ORDERED: ONDANSETRON INJ 2 MG/ML 2 ML VIAL IV PRN ×2 (09:18→11:51)
[2021-12-15] MEDS ORDERED: KETOROLAC 30 MG/ML VIAL IV PRN (09:18)
[2021-12-15] MEDS ORDERED: HYDROmorphone INJ 0.5 MG/0.5 ML SYR IV PRN (09:18)
[2021-12-15] MEDS ORDERED: NALOXONE HCL 1 MG in SODIUM CHLORIDE 0.9% 1000ML 1,000 ML IV PRN (09:18)
[2021-12-15] MEDS ORDERED: NALBUPHINE HCL INJ 10 MG/ML AMP IV PRN (09:18)
[2021-12-15] MEDS ORDERED: MoRPHine SULFATE PF 1 MG/ML 10 ML AMP/VIAL INT SPINAL ONE (09:18)
[2021-12-15] MEDS ORDERED: ePHEDrine sulfate 50 MG/ML AMP IV PRN (09:18)
[2021-12-15] MEDS ORDERED: LACTATED RINGER'S 500 ML IV PRN (09:18)
[2021-12-15] MEDS ORDERED: NALOXONE HCL 0.4 MG/1 ML VIAL/CARP IV PRN (09:18)
[2021-12-15] MEDS ORDERED: diphenhydrAMINE 50 MG/ML VIAL IV PRN (09:18)
[2021-12-15] MEDS ORDERED: fentaNYL citrate 100 MCG/2 ML VIAL ONE (09:21)
[2021-12-15] MEDS ORDERED: MoRPHine SULFATE PF 1 MG/ML 10 ML AMP/VIAL ONE (09:22)
[2021-12-15] MEDS ORDERED: OXYTOCIN 10 UNITS/ML 10ML VIAL ONE (09:22)
[2021-12-15] MEDS ORDERED: NO NARCOTICS OR SEDATIVES SCH (09:30)
[2021-12-15] MEDS ORDERED: SODIUM CHLORIDE 0.9% 1000ML 1,000 ML IV SCH (09:30)
[2021-12-15] MEDS ORDERED: DC INTRASPINAL MORPHINE SCH (09:30)
--- NOTE | 2021-12-15 10:14 | History & Physical Bridge Note ---
Date of Service December 15, 2021 History & Physical Bridge Note I have examined the patient, reviewed the History & Physical and in the interval since the performance of the History & Physical I have noted the following changes of clinical significance: no changes noted
[2021-12-15] MEDS ORDERED: ePHEDrine sulfate 50 MG/ML SYR ONE (10:35)
[2021-12-15] MEDS ORDERED: ONDANSETRON INJ 2 MG/ML 2 ML VIAL ONE (10:45)
--- NOTE | 2021-12-15 11:16 | Post Operative Brief Note ---
PG Immediate Post Op with CF Date of Surgery December 15, 2021 Pre & Post Diagnosis Operation Date: 12/15/21 09:10 <No data on this case meets the specified criteria> 1. 40+wks iup 2. Prior secton, desires repeat section I identified the patient and participated in the time-out.: Yes Procedure Operation Date: 12/15/21 09:10 Actual Procedures p Repeat Low Transverse Section in LD for live male infant at 1036 - Meghna Gonzalez MD, FACOG Surgeon Meghna Gonzalez MD, FACOG Underwriting Consultant Stephani Estimated Blood Loss 600 Findings Consistent with Post-Op Diagnosis (viable male apgars 8,9, normal uterus, tubes and ovaries bilaterally) Fluids 1200 Specimens Specimen Description: Cord blood Placenta- HOLD Drains Hager Catheter Anesthesia Type Spinal Complications none Disposition Accompanied Patient To Recovery: No Disposition: L&D
--- NOTE | 2021-12-15 11:20 | Operative Report ---
PG Post Operative Report Pre & Post Diagnosis Operation Date: 12/15/21 09:10 <No data on this case meets the specified criteria> 1. 40+wk iup 2. Prior section, desires repeat section I identified the patient and participated in the time-out.: Yes Procedure Operation Date: 12/15/21 09:10 Actual Procedures p Repeat Low Transverse Section in for live male at 1036 - Meghna Gonzalez MD, FACOG Surgeon Meghna Gonzalez MD, FACOG Occupational Therapy Aide Stephani Estimated Blood Loss 600 Findings Consistent with Post-Op Diagnosis (viable male apgars 8,9, normal uterus, tubes and ovaries bilaterally) Fluids 1200 Specimens cord blood Drains feldman Anesthesia Type Spinal Complications none Disposition Accompanied Patient To Recovery: No Disposition: L&D Indications 36yo at 40+wks ega for planned repeat section with history of prior section. She is postdates and had wanted to but no labor. Unfavorable cervix noted at last visit and she feels no changes. She is ready to proceed with section. Description of Procedure The patient was taken to the operating room and identified. After adequate anesthesia was obtained, she was placed in the supine position with a leftward tilt on the operating table and prepped and draped in the usual sterile fashion. A feldman catheter had already been placed. The knife was used to create a Pfannensteil skin incision that was carried down to the underlying layer of fascia. The fascia was nicked in the midline and this opening was extended laterally using Alas scissors. Josette clamps were placed on the superior and inferior aspect of the fascial incision tenting it upward and the underlying rectus muscles were dissected off the overlying fascia both sharply and bluntly using Alas scissors. The rectus muscles were bluntly in the midline. The peritoneal cavity was bluntly entered into. This opening was stretched. The bladder blade was placed. The vesicouterine peritoneum was elevated and opened up into and the bladder flap was created digitally and bladder blade was replaced. The knife was used to create a hysterotomy and this opening was stretched. The operators hand was placed through the hysterotomy and the bladder blade was removed. The head was elevated and flexed and with fundal pressure the head was delivered. The shoulders and body were rapidly delivered. The cord was clamped and cut and the infant's mouth and nares were bulb suction. The was handed off to the awaiting pediatricians. Cord blood was obtained. The placenta was manually expressed. The uterus was exteriorized and cleared of all clots and debris. Dilute IV Pitocin was begun. The uterine tone was improving. The hysterotomy was closed in a running interlocking fashion using 0 Vicryl followed by a second imbricating layer of 0 Vicryl. Bleeding sites to left of hysteotomy were stitched with 2-0 vicryl for excellent hemostasis. The hysterotomy was hemostatic. The pelvis was suctioned. The uterus was returned to the abdomen. The gutters were cleared of all clots and debris. The hysterotomy was reinspected and noted to be hemostatic. The fascia was then closed in running fashion using 0 Vicryl. The subcutaneous fat was copiously irrigated and reapproximated using 2-0 chromic. The skin was closed in a subcuticular fashion using 4-0 Vicryl. At this point the procedure was terminated. The patient was transferred to the recovery room in stable condition. All sponge, lap and needle counts are correct x2. I attest to the content of the Intraoperative Record and any orders documented therein. Any exceptions are noted below. OB Procedure Charges 36515
--- NOTE | 2021-12-15 11:38 | Anesthesiology Progress Note ---
Date of Service December 15, 2021 Anesthesia Post Procedure Vital Signs Vital Signs: Temp Pulse Resp BP Pulse Ox 12/15/21 11:37 81 104/65 12/15/21 11:33 67 96 12/15/21 11:29 70 94 12/15/21 11:28 77 95 12/15/21 11:22 82 102/67 96 12/15/21 09:58 93 H 97 12/15/21 09:53 92 H 98 12/15/21 09:48 97 H 99 12/15/21 09:27 88 98 12/15/21 09:22 87 99 12/15/21 09:17 92 H 98 12/15/21 09:12 106 H 100 12/15/21 09:11 91 H 89 L 12/15/21 09:07 84 100 12/15/21 09:00 20 12/15/21 07:30 82 130/84 12/15/21 07:19 37 C 20 Transfer of Care Handoff Completed per policy Notes Mental Status: alert / awake / arousable Patient Amnestic to Procedure: Yes Nausea / Vomiting: adequately controlled Pain: adequately controlled Airway Patency, RR, SpO2: stable & adequate BP & HR: stable & adequate Hydration State: stable & adequate Neuraxial Anesthesia: was administered and sensory block is resolving Anesthetic Complications: no major complications apparent and Pt Satisfied with anesthetic care
[2021-12-15] MEDS ORDERED: HYDROCORTISONE ACETATE 25 MG SUPP PR PRN (11:51)
[2021-12-15] MEDS ORDERED: DIPHTHERIA/TETANUS/PERTUSSIS 0.5 ML SYR/VIAL IM ONE (11:51)
[2021-12-15] MEDS ORDERED: SENNA 8.6 MG TAB PO PRN (11:51)
[2021-12-15] MEDS ORDERED: BENZOCAINE 20% AER SPR 82.5 GM CAN EXT PRN (11:51)
[2021-12-15] MEDS ORDERED: MAGNESIUM HYDROXIDE SUSP 30 ML UDC PO PRN (11:51)
[2021-12-15] MEDS: OXYTOCIN 20 UNITS in LACTATED RINGER'S 1,000 ML IV SCH ×2 (12:59→20:31)
[2021-12-15] MEDS ORDERED: SODIUM CHLORIDE 0.9% 500 ML IV ONE (13:00)
[2021-12-15] MEDS: SIMETHICONE 80 MG CHEW PO SCH ×2 (17:34→20:31)
[2021-12-15] MEDS: DOCUSATE SODIUM 100 MG CAP PO SCH (20:31)
[2021-12-16] MEDS ORDERED: diphenhydrAMINE Capsule 25 MG CAP PO PRN (03:15)
[2021-12-16] MEDS ORDERED: diphenhydrAMINE 50 MG/ML VIAL IV PRN (03:19)
[2021-12-16] MEDS ORDERED: oxyCODONE/ACETAMINOPHEN 5mg/325mg TAB PO PRN (03:19)
[2021-12-16] MEDS ORDERED: PROMETHAZINE HCL 25 MG in SODIUM CHLORIDE 0.9% 50 ML IV PRN (03:19)
[2021-12-16] MEDS ORDERED: CITRIC ACID/SODIUM CITRATE 15 ML UDC PO SCH (06:00)
[2021-12-16] MEDS: LEVOTHYROXINE SODIUM 112 MCG TABLET PO SCH (06:31)
[2021-12-16 06:53] LABS: Basophils # (auto) 0.03 K/uL (0-0.2); Basophils % (auto) 0.2 %; Eosinophils # (auto) 0.13 K/uL (0-0.5); Eosinophils % (auto) 0.9 %; Hemoglobin 9.9 g/dL (12.0-16.0); Immature Granulocytes # (auto) 0.09 K/uL (0.00-0.02); Immature Granulocytes % (auto) 0.6 %; Lymphocytes # (auto) 1.62 K/uL (1.2-3.4); Mean Corpuscular Hemoglobin 29.6 pg (25-34); Mean Corpuscular Hgb Conc 34.1 g/dL (32-36); Mean Corpuscular Volume 86.6 fL (80-100); Mean Platelet Volume 10.1 fL (7.4-10.4); Monocytes # (auto) 1.08 K/uL (0.11-0.59); Monocytes % (auto) 7.4 %; Neutrophils # (auto) 11.72 K/uL (1.4-6.5); Neutrophils % (auto) 79.9 %; Platelet Count 193 K/uL (130-400); RDW Coefficient of Variation 14.3 % (11.5-14.5); RDW Standard Deviation 44.8 fL (36.4-46.3); Red Blood Count 3.35 M/uL (4.2-5.4); White Blood Count 14.67 K/uL (4.8-10.8)
--- NOTE | 2021-12-16 07:38 | Obstetrical Progress Note ---
Date of Service <Maryamie Medrano DO - Last Filed: 12/16/21 07:55> December 16, 2021 Assessment & Plan <Mary Medrano DO - Last Filed: 12/16/21 07:55> (1) Encounter for care and examination after delivery: 36 yo post op day1 from c/s, doing well. -Continue routine post care. -vital signs reviewed and WNL (Tmax 36.8) -Blood Type O+, GBS-, Rubella Immune -Encourage ambulation, monitor and control pain with Motrin, tylenol PRN, resume regular diet, monitor lochia -encourage breast feeding -hemoglobin 9.9 Day #:: 1 <Dayday Styles MD - Last Filed: 12/16/21 09:31> (1) Encounter for care and examination after delivery: Subjective <Maryamie Medrano DO - Last Filed: 12/16/21 07:55> Ambulation: ambulating normally Voiding: no voiding problems Passing Gas:: Yes Diet Tolerance:: regular diet Lochia:: Small Feeding Type:: breast feeding Current Pain Level(1-10): 2 Review of Systems Denies fever, chills, sweats Denies shortness of breath, difficulty breathing, chest pain, palpitations, chest pressure. Denies breast pain. Denies dysuria. Denies headache or changes in vision. Physical Exam <Mary MitchellDO - Last Filed: 12/16/21 07:55> General: Alert, oriented. No acute distress. Cardiac: Regular rate and rhythm, no murmurs/rubs/gallops. Respiratory: Clear to auscultation bilaterally a/p, no wheezes/rales/rhonchi. No increased work of breathing. Symmetrical chest rise. No respiratory distress. Abdomen: Soft, nontender, nondistended. Bowel sounds present. Uterus: Uterine fundus firm, palpable at umbilicus. Surgical scar clean and healing well. Lower Extremities: No lower extremity edema or swelling. No deep calf pain. Laci's negative bilaterally. Results & Data ([facility]) <Mary Medrano DO - Last Filed: 12/16/21 07:55> Vital Signs (Past 12 Hours) Vital Signs Temp Pulse Resp BP Pulse Ox 12/16/21 03:05 36.8 C 81 16 123/83 98 04/19/22 02:10 16 97 12/16/21 01:40 16 96 12/16/21 00:30 16 96 12/16/21 00:01 16 97 12/15/21 23:40 123/82 12/15/21 23:15 37.0 C 94 H 16 156/91 H 95 12/15/21 22:15 16 97 12/15/21 21:20 16 96 12/15/21 20:30 16 99 <Dayday Styles MD - Last Filed: 12/16/21 09:31> Co-Signing Physician Notes Patient was seen and evaluated and agree with the above findings and plan. Routine care Resident Activity Tracking <Mary Medrano DO - Last Filed: 12/16/21 07:55> Resident Involvement: Resident Care Provided Care Provided: Adult Hospital Medicine and OB Delivery
[2021-12-16] MEDS: FERROUS SULFATE 325 MG TAB PO SCH (08:00)
[2021-12-16] MEDS: SIMETHICONE 80 MG CHEW PO SCH ×4 (08:01→21:12)
[2021-12-16] MEDS: IBUPROFEN 600 MG TAB PO PRN ×2 (08:01→21:12)
[2021-12-16] MEDS: PRENATAL VITAMIN 1 TAB PO SCH (08:01)
[2021-12-16] MEDS: DOCUSATE SODIUM 100 MG CAP PO SCH ×2 (08:01→21:12)
--- NOTE | 2021-12-17 05:59 | Obstetrical Progress Note ---
Date of Service <Mary Medrano DO - Last Filed: 12/17/21 06:52> December 17, 2021 Assessment & Plan <Mary Medrano DO - Last Filed: 12/17/21 06:52> (1) Encounter for care and examination after delivery: 36 yo post op day2 from c/s [facility] elderly primigravida, hypothyroidism, GDM, doing well. -Continue routine post care. -vital signs reviewed and WNL (Tmax 37) -Blood Type O+, GBS-, Rubella Immune -Encourage ambulation, monitor and control pain with Motrin, tylenol PRN, resume regular diet, monitor lochia -encourage breast feeding -hemoglobin 9.9 Day #:: 2 <Ruma Gamez MD - Last Filed: 12/17/21 07:36> (1) Encounter for care and examination after delivery: Subjective <Mary Medrano DO - Last Filed: 12/17/21 06:52> Ambulation: ambulating normally Voiding: no voiding problems Passing Gas:: Yes Diet Tolerance:: regular diet Lochia:: Small Feeding Type:: breast feeding Current Pain Level(1-10): 1 Review of Systems Denies fever, chills, sweats Denies shortness of breath, difficulty breathing, chest pain, palpitations, chest pressure. Denies breast pain. Denies dysuria. Denies headache or changes in vision. Physical Exam <Mary Medrano DO - Last Filed: 12/17/21 06:52> General: Alert, oriented. No acute distress. Cardiac: Regular rate and rhythm, no murmurs/rubs/gallops. Respiratory: Clear to auscultation bilaterally a/p, no wheezes/rales/rhonchi. No increased work of breathing. Symmetrical chest rise. No respiratory distress. Abdomen: Soft, nontender, nondistended. Bowel sounds present. Uterus: Uterine fundus firm, palpable at umbilicus. Surgical scar clean and healing well. Lower Extremities: No lower extremity edema or swelling. No deep calf pain. Laci's negative bilaterally. Results & Data ([facility]) <Mary Medrano DO - Last Filed: 12/17/21 06:52> Vital Signs (Past 12 Hours) Vital Signs Temp Pulse Resp BP Pulse Ox 12/17/21 00:30 36.6 C 87 18 118/77 96 <Ruma Gamez MD - Last Filed: 12/17/21 07:36> Co-Signing Physician Notes Resident Physician Supervision Note: I interviewed and examined the patient. Discussed with Dr. Medrano and agree with findings and plan as documented in the note. Any exceptions or clarifications are listed here: [ ] Documented By: Ruma Gamez MD, FACOG Resident Activity Tracking <Mary Medrano DO - Last Filed: 12/17/21 06:52> Resident Involvement: Resident Care Provided Care Provided: Adult [facility] Medicine and OB Delivery
[2021-12-17] MEDS: LEVOTHYROXINE SODIUM 112 MCG TABLET PO SCH (06:09)
[2021-12-17 07:20] LABS: Hematocrit (blood only) 26.9 % (37-47); Hemoglobin 8.9 g/dL (12.0-16.0)
[2021-12-17] MEDS: SIMETHICONE 80 MG CHEW PO SCH (08:57)
[2021-12-17] MEDS: DOCUSATE SODIUM 100 MG CAP PO SCH (08:57)
[2021-12-17] MEDS: FERROUS SULFATE 325 MG TAB PO SCH (08:57)
[2021-12-17] MEDS: PRENATAL VITAMIN 1 TAB PO SCH (08:57)
--- NOTE | 2021-12-17 13:27 | Communication Note ---
Date of Service: December 17, 2021 Nursing informed me that pt desires dc home today. Ambulating, tolerating PO, voiding spontaneously, passing flatus and feels like will have BM in next day or two. Appropriate lochia. Denies fevers/chills, cp, sob. Return to office in 6 wks for postop check, declines rx for percocet. Stable for d/c home
--- NOTE | 2021-12-18 16:49 | Discharge Summary ---
Date of Service Date of admission: December 15, 2021 Date of discharge: 12/17/21 Admission HPI Per Admitting Provider 36yo at 40+wks ega for planned c/s in background of prior c/s for repeat due to no labor for desired . Patient had wanted to and day of admission would be her default c/s date due to no labor. PNC c/b 1. GDM, recent adjustment of edc, shows u/s LGA and AC% 84, not on insulin. per pt glucoses <80 fasting and <110 1hr pp on vast majority of occasions. 2. Hypothyroid 3. AMA 4. Abnl quad--> low risk cfDNA PNL rh pos, ri, gbs neg OBH: prior breech c/s GYNH: nl paps Discharge Data Consultations 12/15/21 08:12 Consult Anesthesiology Stat Procedures Performed Operation Date: 12/15/21 09:10 Actual Procedures p Repeat Low Transverse Section in LD for live male at 1036 - Meghna Gonzalez MD, [facility] Course (1) History of delivery, currently : The patient underwent the above stated procedure without incident and her postoperative course and recovery was uncomplicated. On her postoperative day #2 she was tolerating a regular diet, voiding spontaneously, ambulating without problem and was using oral meds for adequate pain control. Her postoperative hemoglobin was 8.9. She was given written and verbal discharge instructions and told to followup in office at 6wks. She was given appropriate pain medicine prescriptions. Coding Level of Care Code None Diagnoses History of delivery, currently O34.219
== END 2021-12-17 13:45 | disposition home or self-care (01) | DRG 788 ==
LOC: EDSTATUS 07:30 → 4S1 12-15 06:57 → 4E2 12-15 14:35